=== PATIENT | female | born 1985 | race Caucasian/White ===

== ENCOUNTER 2021-07-04 20:34 | Inpatient (IN) ==
[2021-07-04] MEDS ORDERED: METHYLERGONOVINE 0.2 MG/1 ML AMP IM PRN ×2 (20:50→20:51)
[2021-07-04] MEDS ORDERED: BUTORPHANOL 1 MG/ML VIAL IV PRN (20:50)
[2021-07-04] MEDS ORDERED: TRANEXAMIC ACID 1,000 MG in SODIUM CHLORIDE 0.9% 100 ML IV PRN ×2 (20:50→20:51)
[2021-07-04] MEDS ORDERED: MEPERIDINE 50 MG/1 ML VIAL IV PRN ×2 (20:50→20:51)
[2021-07-04] MEDS ORDERED: ACETAMINOPHEN 325 MG TABLET PO PRN (20:50)
[2021-07-04] MEDS ORDERED: BUTORPHANOL 2 MG/ML VIAL IV PRN (20:50)
[2021-07-04] MEDS ORDERED: OXYTOCIN/LR 20 UNIT/1,000 ML BAG IV ONE ×2 (20:50→20:51)
[2021-07-04] MEDS ORDERED: miSOPROStoL 200 MCG TABLET RECTAL PRN ×2 (20:50→20:51)
[2021-07-04] MEDS ORDERED: CARBOPROST TROMETHAMINE 250 MCG/ML AMP IM PRN ×2 (20:50→20:51)
[2021-07-04] MEDS ORDERED: ONDANSETRON 4 MG/2 ML VIAL IV PRN (20:51)
[2021-07-04] MEDS ORDERED: LACTATED RINGERS 1,000 ML IV SCH (21:00)
[2021-07-04 21:24] LABS: Basophils % 0.3 % (0.0-0.8); Eosinophils # 0.1 10*3/uL (0.0-0.87); Eosinophils % 0.4 % (0.00-10.9); Hematocrit 35.1 VOL% (35.7-47.0); Hemoglobin 11.4 GM/DL (12.0-16.0); Immature Granulocytes Absolute 0.14 #; Lymphocytes # 1.6 10*3/uL (1.4-4.0); Lymphocytes % 11.3 % (21.3-54.2); Mean Corpuscular HGB Conc 32.5 GM/DL (32-36); Mean Corpuscular Volume 87.8 FL (87-102); Mean Platelet Volume 11.4 FL (9.6-12.0); Monocytes # 0.7 10*3/uL (0.11-0.8); Monocytes % 4.7 % (1.7-12.7); Neutrophils % 82.3 % (38.7-73.9); Platelet Count 238 T/CUMM (130-400); Red Cell Distribution Width 15.2 % (9.3-17.3); White Blood Count 13.7 T/CUMM (4-12)
[2021-07-04 22:10] LABS: Alanine Aminotransferase 13 U/L (13-56); Albumin 2.4 G/DL (3.4-5.0); Alkaline Phosphatase 215 U/L (45-117); Aspartate Amino Transferase 12 U/L (0-37); Bilirubin,Total < 0.39 MG/DL (0.20-1.00); Blood Urea Nitrogen 3 MG/DL (7-18); Carbon Dioxide 18 MMOL/L (21-32); Chloride 111 MMOL/L (98-107); Estimated Glom Filtration Rate 129 ML/MIN; Glucose 161 MG/DL (74-106); Osmolality,Calculated 276.5 MOS/KG (273-304); Potassium 3.3 MMOL/L (3.5-5.1); Sodium 139 MMOL/L (136-145); Total Protein 5.9 G/DL (6.4-8.2)
[2021-07-05] MEDS: POTASSIUM CHLORIDE 20 MEQ TABLET PO PRN ×3 (00:08→04:28)
[2021-07-05] MEDS: CLINDAMYCIN INJ 900 MG/50 ML PREMIX IV SCH ×3 (00:09→16:08)
[2021-07-05] MEDS: ONDANSETRON 4 MG/2 ML VIAL IV PRN (09:56)
[2021-07-05] MEDS: MEPERIDINE 50 MG/1 ML VIAL IV PRN ×2 (09:58→14:03)
[2021-07-05] MEDS: LACTATED RINGERS 1,000 ML IV SCH ×2 (12:50→16:47)
[2021-07-05] MEDS ORDERED: hydrOXYzine HCL 25 MG/1 ML VIAL IM PRN (15:32)
[2021-07-05] MEDS ORDERED: diphenhydrAMINE 50 MG/1 ML VIAL IV PRN ×2 (15:32)
[2021-07-05] MEDS ORDERED: NALOXONE 0.4 MG/ML VIAL IV PRN (15:32)
[2021-07-05] MEDS ORDERED: PROMETHAZINE 25 MG/1 ML VIAL IM ONE (15:32)
[2021-07-05] MEDS ORDERED: CITRIC ACID/SODIUM CITRATE 30 ML UDCUP PO ONE (15:32)
[2021-07-05] MEDS ORDERED: FAMOTIDINE 20 MG/2 ML VIAL IV ONE (15:32)
[2021-07-05] MEDS ORDERED: LACTATED RINGERS 1,000 ML IV ONE (15:32)
[2021-07-05] MEDS ORDERED: fentaNYL 2 MCG/ROPIV 0.2% EPID 100 ML EPIDURAL SCH (16:00)
[2021-07-05] MEDS ORDERED: OXYTOCIN/LR 20 UNIT/1,000 ML BAG IV ONE ×2 (16:12→22:43)
[2021-07-05] MEDS ORDERED: TRANEXAMIC ACID 1,000 MG/10 ML VIAL ONE (16:12)
[2021-07-05] MEDS ORDERED: METHYLERGONOVINE 0.2 MG/1 ML AMP ONE (16:12)
[2021-07-05] MEDS ORDERED: SODIUM CHLORIDE 0.9% 0 ML IV ONE (16:12)
[2021-07-05] MEDS ORDERED: miSOPROStoL 200 MCG TABLET ONE (16:12)
[2021-07-05] MEDS ORDERED: CARBOPROST TROMETHAMINE 250 MCG/ML AMP IM ONE (16:13)
[2021-07-05] MEDS: ePHEDrine 50 MG/ML VIAL IV PRN ×3 (16:45→16:55)
[2021-07-05 17:21] LABS: Cord Arterial Blood HCO3 12.5 MMOL/L
[2021-07-05 17:23] LABS: Cord Venous Blood HCO3 15.1 MMOL/L; Cord Venous Blood PCO2 64.6 MMHG; Cord Venous Blood PO2 24.9
[2021-07-05] MEDS ORDERED: BISACODYL 10 MG SUPP RECTAL PRN (22:43)
[2021-07-05] MEDS ORDERED: DIPH/TET/ACEL PERT BOOSTER VACCINE 0.5 ML VIAL IM ONE (22:43)
[2021-07-05] MEDS ORDERED: LANOLIN 50% CREAM 0.3 OZ TUBE TOP PRN (22:43)
[2021-07-05] MEDS ORDERED: MEASLES/MUMPS/RUBELLA VACCINE 0.5 ML VIAL SUBCUT ONE (22:43)
[2021-07-05] MEDS ORDERED: ACETAMINOPHEN 325 MG TABLET PO PRN (22:43)
[2021-07-05] MEDS ORDERED: WITCH HAZEL PADS 100/JAR TOP PRN (22:43)
[2021-07-05] MEDS ORDERED: oxyCODONE/ACETAMINOPHEN 5-325 MG TABLET PO PRN (22:43)
[2021-07-05] MEDS ORDERED: BENZOCAINE 20%/MENTHOL 0.5% SPRAY 56 GM CAN TOP PRN (22:43)
[2021-07-05] MEDS ORDERED: HYDROCORTISONE 2.5% RECTAL CREAM 30 GM TUBE TOP PRN (22:43)
[2021-07-05] MEDS ORDERED: RHO(D) IMMUNE GLOBULIN 300 MCG SYRINGE IM ONE (22:43)
[2021-07-05] MEDS ORDERED: ONDANSETRON 4 MG/2 ML VIAL IV PRN (22:43)
[2021-07-05] MEDS: DOCUSATE SODIUM 100 MG CAPSULE PO SCH (22:58)
[2021-07-06] MEDS: ONDANSETRON 4 MG/2 ML VIAL IV PRN (00:36)
[2021-07-06] MEDS: CLINDAMYCIN INJ 900 MG/50 ML PREMIX IV SCH (00:59)
[2021-07-06] MEDS: IBUPROFEN 800 MG TABLET PO PRN ×2 (03:38→13:01)
[2021-07-06 05:37] LABS: Basophils % 0.2 % (0.0-0.8); Eosinophils % 0.2 % (0.00-10.9); Hemoglobin 9.9 GM/DL (12.0-16.0); Immature Granulocytes % 0.7 %; Immature Granulocytes Absolute 0.13 #; Lymphocytes # 1.8 10*3/uL (1.4-4.0); Lymphocytes % 9.6 % (21.3-54.2); Mean Corpuscular Volume 87.2 FL (87-102); Mean Platelet Volume 11.9 FL (9.6-12.0); Monocytes # 1.1 10*3/uL (0.11-0.8); Neutrophils % 83.3 % (38.7-73.9); Platelet Count 210 T/CUMM (130-400); Red Blood Count 3.44 MC/CUMM (3.8-5.5); Red Cell Distribution Width 15.2 % (9.3-17.3); White Blood Count 18.8 T/CUMM (4-12)
[2021-07-06] MEDS: oxyCODONE/ACETAMINOPHEN 5-325 MG TABLET PO PRN ×2 (08:58→20:53)
[2021-07-06] MEDS: DOCUSATE SODIUM 100 MG CAPSULE PO SCH ×2 (08:59→20:53)
[2021-07-06] MEDS ORDERED: RHO(D) IMMUNE GLOBULIN 300 MCG SYRINGE IM ONE (15:49)
[2021-07-06] MEDS ORDERED: ONDANSETRON 4 MG TABLET PO PRN (20:41)
[2021-07-07] MEDS: IBUPROFEN 800 MG TABLET PO PRN ×2 (00:30→05:49)
[2021-07-07] MEDS: oxyCODONE/ACETAMINOPHEN 5-325 MG TABLET PO PRN (05:49)
[2021-07-07 07:48] VITALS: BP 99/61
[2021-07-07] MEDS: DOCUSATE SODIUM 100 MG CAPSULE PO SCH (08:52)
== END 2021-07-07 12:00 | disposition home or self-care (01) | DRG 807 ==
LOC: N.LDOUT 20:34 → N.LD 20:36 → N.OB 07-05 22:05
PROVIDERS: ADMIT Specialist; ATTEND Specialist